=== PATIENT | female | born 1950 | race Caucasian/White ===

== ENCOUNTER 2017-08-02 21:46 | Inpatient (IN) | payer OTHER ==
--- OUTSIDE RECORDS SUMMARY | 2017-08-02 21:48 | XMS REPORT | Clinical Summary ---
:1950 Author Organization [facility] Address [address] [place] [address] Care Team Providers Name Role Phone Bidr Brooks MD Primary Care Provider Allergies Active Allergy Reactions Severity Noted Date Comments Aspirin 04/26/2017 Current Medications Prescription Sig. Disp. Refills Start Date End Date Status warfarin (COUMADIN) 5 Take 5 mg by Active MG tablet mouth daily. Take 1 tablet (5mg) by mouth daily for 30 days. gabapentin Take 300 mg by Active (NEURONTIN) 100 mg mouth every capsule morning. Take 3 capsules for 300 mg in morning gabapentin Take 200 mg by Active (NEURONTIN) 100 mg mouth 2 (two) capsule times a day. Take 2 capsules for 200 mg at Noon and Bedtime midodrine Take 5 mg by Active (PROAMATINE) 5 MG mouth every tablet morning. BUMETanide (BUMEX) 2 Take 2 mg by Active MG tablet mouth every morning. sevelamer (RENVELA) Take 800 mg by Active 800 mg tablet mouth 3 (three) times a day with meals. traMADol (ULTRAM) 50 Take 50 mg by Active mg tablet mouth every 6 (six) hours as needed for moderate pain. temazepam (RESTORIL) Take 15 mg by Active 15 mg capsule mouth nightly as needed for sleep. furosemide (LASIX) 40 Take 40 mg by Active mg tablet mouth every morning. gabapentin Take 1 capsule 30 capsule 0 05/09/2017 06/08/2017 (NEURONTIN) 300 mg (300 mg total) capsule by mouth daily for 30 days. Lactobacillus Take 1 tablet 60 tablet 0 05/08/2017 06/07/2017 acidoph-L.bulgar by mouth 2 (FLORANEX) 1 million (two) times a cell tablet day for 30 days. HEPARIN Inject 1 mL 10 mL 0 05/08/2017 05/13/2017 SODIUM,PORCINE (5,000 Units (HEPARIN, PORCINE,) total) under 5,000 unit/mL the skin every injection 12 (twelve) hours for 5 days. traMADol (ULTRAM) 50 Take 1 tablet 21 tablet 0 05/08/2017 05/15/2017 mg tablet (50 mg total) by mouth every 8 (eight) hours as needed for moderate pain for up to 7 days. 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 Encounters Date Type Specialty Care Team Description 05/03/2017 Anesthesia Event General Internal Clifford Melendez MD 05/03/2017 Procedure Pass General Surgery 05/03/2017 Surgery General Surgery Harvey Anderson, RIGHT FOOT 3RD DPM DIGIT AMPUTATION 04/27/2017 Procedure Pass General Internal Medicine 04/27/2017 Procedure Pass General Internal Medicine 04/26/2017 - Hospital Encounter General Internal Gudelia Mckeon Diabetic wet gangrene of the foot (Primary Dx); 05/08/2017 Medicine FITZ Muhammad Cellulitis of foot Vinod Nava DO Al-Lahiq, Maha, MD Teqwimuah, Remy, DO after 08/01/2016 Social History Tobacco Use Types Packs/Day Years Used Date Former Smoker Smokeless Tobacco: Never Used Alcohol Use Drinks/Week oz/Week Comments No Sex Assigned at Date Recorded Not on file Last Filed Vital Signs Vital Sign Reading Time Taken Blood Pressure 117/59 05/08/2017 10:44 AM STUCCO WORKER Pulse 73 05/08/2017 10:44 AM [employer]UCCO WORKER Temperature 35.8 C (96.5 F) 05/08/2017 10:44 AM STUCCO WORKER Respiratory Rate 16 05/08/2017 10:44 AM STUCCO WORKER Oxygen Saturation 97% 05/08/2017 10:44 AM STUCCO WORKER Inhaled Oxygen Concentration - - Weight 98.9 kg (218 lb) 05/05/2017 4:37 AM STUCCO WORKER Height 172.7 cm (5' 8") 04/27/2017 1:55 AM STUCCO WORKER Body Mass Index 33.15 05/05/2017 4:37 AM STUCCO WORKER Plan of Treatment Health Maintenance Due Date Last Done Comments FOOT EXAM 1959 OPHTHALMOLOGY EXAM 1959 URINE MICROALBUMIN 1959 COLONOSCOPY 1999 MAMMOGRAM 1999 ZOSTER VACCINE 2009 PNEUMOCOCCAL POLYSACCHARIDE VACCINE AGE 65 AND OVER 2014 PNEUMOCOCCAL-13 2014 INFLUENZA VACCINE 12/07/2016 Procedures Procedure Name Priority Date/Time Associated Diagnosis Comments HEMODIALYSIS Routine 05/07/2017 6:23 AM STUCCO WORKER HEMODIALYSIS Routine 05/05/2017 8:43 AM STUCCO WORKER RIGHT FOOT 3RD DIGIT 05/03/2017 5:00 PM DIABETIC WET GANGRENE AMPUTATION STUCCO WORKER OF THE RIGHT FOOT HEMODIALYSIS Routine 05/03/2017 7:18 AM STUCCO WORKER ULTRAFILTRATION Routine 04/30/2017 9:25 AM STUCCO WORKER after 08/01/2016 Results POC glucose (05/08/2017 11:51 AM)Only the most recent of46 resultswithin the time period is included. Component Value Ref Range POC glucose 247 (H) 65 - 99 mg/dL Comment: Meter ID: [id number] Spinning Machine Operator: Kanika Galeas Specimen Performing Laboratory [facility] DEPARTMENT OF PATHOLOGY AND GENOMIC MEDICINE [address] [place] [address] [place] [address] Estimated GFR (05/08/2017 5:00 AM)Only the most recent of7 resultswithin the time period is included. Component Value Ref Range GFR Non Af Amer 5 (A) mL/min/1.73 m2 GFR Af Amer 6 (A) mL/min/1.73 m2 Comment: Chronic kidney disease: <60 mL/min/1.73m2 Kidney failure: <15 mL/min/1.73m2 The estimated GFR is calculated from the IDMS-traceable Modification of Diet in Renal Disease Equation. The accuracy of the calculation is poor when the creatinine is normal. Calculated values >90 mL/min/1.73m2 are not reported. This equation has not been validated in children (<18 years), women, the elderly (>70 years), or ethnic groups other than Caucasians and Americans. Specimen Performing Laboratory Plasma specimen [facility] DEPARTMENT OF PATHOLOGY AND GENOMIC MEDICINE [id number] [place] [address] [place] [address] Prothrombin time with INR (05/08/2017 5:00 AM)Only the most recent of10 resultswithin the time period is included. Component Value Ref Range Prothrombin time 13.8 12.0 - 15.0 sec INR 1.0 Comment: The International Normalized Ratio (INR) is a therapeutic monitoring tool for patients who are stable on oral anticoagulant therapy. An INR of 2.0-3.0 is suggested for deep vein thrombosis/pulmonary embolism. Specimen Performing Laboratory Blood [facility] OF PATHOLOGY AND [facility] [address] [place] [address] CBC with platelet and differential (05/08/2017 5:00 AM)Only the most recent of6 resultswithin the time period is included. Component Value Ref Range WBC 7.45 4.50 - 11.00 k/uL RBC 4.01 (L) 4.20 - 5.50 m/uL HGB 11.5 (L) 12.0 - 16.0 g/dL HCT 36.3 (L) 37.0 - 47.0 % MCV 90.5 82.0 - 100.0 fL MCH 28.7 27.0 - 34.0 pg MCHC 31.7 31.0 - 37.0 g/dL RDW - SD 46.8 37.0 - 55.0 fL MPV 9.6 8.8 - 13.2 fL Platelet count 313 150 - 400 k/uL Nucleated RBC 0.00 /100 WBC Neutrophils 61.6 39.0 - 69.0 % Lymphocytes 23.0 (L) 25.0 - 45.0 % Monocytes 11.8 (H) 0.0 - 10.0 % Eosinophils 2.8 0.0 - 5.0 % Basophils 0.5 0.0 - 1.0 % Immature granulocytes 0.3Comment: "Immature granulocytes" 0.0 - 1.0 % (promyelocytes, myelocytes, metamyelocytes) Specimen Performing Laboratory Blood [facility] DEPARTMENT OF PATHOLOGY AND [facility] [address] [place] [address] Basic metabolic panel (05/08/2017 5:00 AM)Only the most recent of6 resultswithin the time period is included. Component Value Ref Range Sodium 128 (L) 135 - 148 mEq/L Potassium 4.4 3.5 - 5.0 mEq/L Chloride 85 (L) 98 - 112 mEq/L CO2 24 24 - 31 mEq/L Anion gap 19 (H) 7 - 15 mEq/L Comment: Starting from August , anion gap calculation no longer incorporates potassium. Please note the change. BUN 61 (H) 8 - 23 mg/dL Creatinine 7.8 (H) 0.5 - 0.9 mg/dL Glucose 154 (H) 65 - 99 mg/dL Calcium 9.4 8.8 - 10.2 mg/dL Specimen Performing Laboratory Plasma specimen [facility] DEPARTMENT OF PATHOLOGY AND GENOMIC [facility] [id number] [place] [address] [place] [address] IR Revasc Tib Per Initial Vessel W Tla Left (05/06/2017 12:45 PM) Specimen Performing Laboratory [address] [address] Narrative PROCEDURE:IR REVASC TIB PER INITIAL VESSEL W TLA LEFT This exam was performed in the Radiology department. IMPRESSION: A complete separate report will be issued in operative notes by the performing physician. [id number] Procedure Note Interface, Radiology Results Incoming - 05/06/2017 2:39 PM STUCCO WORKER PROCEDURE: IR REVASC TIB PER INITIAL VESSEL W TLA LEFT This exam was performed in the Radiology department. IMPRESSION: A complete separate report will be issued in operative notes by the performing physician. [id number] IR Left Extremity Angiogram (05/06/2017 12:45 PM) Specimen [place]forming [place] [address] Narrative PROCEDURE:IR LEFT EXTREMITY ANGIOGRAM This exam was performed in the Radiology department. Fluoro time:25:27 minutes IMPRESSION: A complete separate report will be issued in operative notes by the performing physician. [id number] Procedure Note Interface, Radiology Results Incoming - 05/06/2017 2:39 PM STUCCO WORKER PROCEDURE: IR LEFT EXTREMITY ANGIOGRAM This exam was performed in the Radiology department. Fluoro time: 25:27 minutes IMPRESSION: A complete separate report will be issued in operative notes by the performing physician. [id number] Vancomycin level, random (05/06/2017 5:00 AM)Only the most recent of2 resultswithin the time period is included. Component Value Ref Range Vancomycin, random 18.0 ug/mL Specimen Performing Laboratory Serum [facility] DEPARTMENT OF PATHOLOGY AND GENOMIC MEDICINE [address] [place] [address] Partial thromboplastin time, activated (05/05/2017 4:30 AM)Only the most recent of2 resultswithin the time period is included. Component Value Ref Range PTT 42.1 (H) 23.0 - 36.0 sec Comment: PTT therapeutic range for unfractionated heparin is 61.0-112.0 seconds which corresponds to Anti-Xa 0.3-0.7 U/ml. Specimen Performing Laboratory Blood [facility] DEPARTMENT PATHOLOGY AND [facility] [address] [place] [address] Type and screen (05/05/2017 4:25 AM)Only the most recent of2 resultswithin the time period is included. Component Value Ref Range ABO grouping O Rh type POS Antibody screen NEG Specimen Performing Laboratory Blood [facility] [address] [place] [address] Surgical pathology request (05/03/2017 6:38 PM) Component Value Ref Range Surgical pathology report See link below for PDF Lab Report Result status This is Final Report to [id number] Specimen Performing Laboratory [facility] [address] [place] [address] CBC hemogram (05/03/2017 5:03 PM) Component Value Ref Range WBC 9.14 4.50 - 11.00 k/uL RBC 4.34 4.20 - 5.50 m/uL HGB 12.5 12.0 - 16.0 g/dL HCT 40.2 37.0 - 47.0 % MCV 92.6 82.0 - 100.0 fL MCH 28.8 27.0 - 34.0 pg MCHC 31.1 31.0 - 37.0 g/dL RDW - SD 49.1 37.0 - 55.0 fL MPV 9.3 8.8 - 13.2 fL Platelet count 334 150 - 400 k/uL Nucleated RBC 0.00 /100 WBC Specimen Performing Laboratory Blood [facility] [id number] [place] [address] [place] [address] Aerobic culture (05/03/2017 4:45 PM)Only the most recent of2 resultswithin the time period is included. Component Value Ref Range Aerobic culture isolate Staphylococcus aureus Few , susceptibility to follow This organism is Methicillin Sensitive. (A) Comment: Specimen Information Specimen Source: Wound Specimen Site: [id number] Aerobic culture isolate Staphylococcus, coagulase negative Few (A) Specimen Performing Laboratory Wound [facility] DEPARTMENT OF PATHOLOGY AND GENOMIC MEDICINE [address] [place] [id number] Organism Antibiotic Method Susceptibility Staphylococcus aureus Ampicillin RITESH mcg/mL: Resistant Staphylococcus aureus Clindamycin RITESH <=0.5 mcg/mL: Susceptible Staphylococcus aureus Erythromycin RITESH >4 mcg/mL: Resistant Staphylococcus aureus Levofloxacin RITESH <=1 mcg/mL: Susceptible Staphylococcus aureus Linezolid RITESH 2 mcg/mL: Susceptible Staphylococcus aureus Minocycline RITESH <=1 mcg/mL: Susceptible Staphylococcus aureus Oxacillin RITESH 1 mcg/mL: Susceptible Staphylococcus aureus Penicillin G RITESH >1 mcg/mL: Resistant Staphylococcus aureus Rifampin RITESH <=0.5 mcg/mL: Susceptible Staphylococcus aureus Trimethoprim/Sulfamethoxazo RITESH <=0.5/9.5 mcg/mL: le Susceptible Staphylococcus aureus Tetracycline RITESH <=0.5 mcg/mL: Susceptible Staphylococcus aureus Vancomycin RITESH 2 mcg/mL: Susceptible Gram stain (05/03/2017 4:45 PM)Only the most recent of2 resultswithin the time period is included. Component Value Ref Range Gram stain isolate No WBC's or organisms seen. Comment: Specimen Information Specimen Source: Wound Specimen Site: [id number] Specimen Performing Laboratory Wound [facility] DEPARTMENT OF PATHOLOGY AND [facility] [address] [place] [id number] Anaerobic culture (05/03/2017 4:45 PM)Only the most recent of2 resultswithin the time period is included. Component Value Ref Range Anaerobic culture isolate No anaerobic organisms isolated. Comment: Specimen Information Specimen Source: Wound Specimen Site: [id number] Specimen Performing Laboratory Wound [facility] DEPARTMENT OF PATHOLOGY AND [facility] [address] [place] [address] C difficile toxin (05/02/2017 2:30 PM) Component Value Ref Range Clostridium difficile toxin No Clostridium difficle toxin present Comment: Specimen Information Specimen Source: Stool Specimen Site: Nonpreserved Specimen Performing Laboratory Stool - Nonpreserved [facility] DEPARTMENT OF PATHOLOGY AND [facility] [address] [place] [address] MRI Foot Wo Contrast Right (04/30/2017 6:57 PM) Specimen Performing Laboratory [address] [address] Narrative EXAMINATION:MRI FOOT WO CONTRAST RIGHT CLINICAL HISTORY:OSTEOMYELITISFOOT COMPARISON:Radiograph performed on 04/26/2017. TECHNIQUE: Multiplanar multisequence MRI of the right foot was performed without contrast. FINDINGS: There is soft tissue ulceration at the distal aspect of the third toe with adjacent soft tissue edema. No organized soft tissue fluid collection is identified. There is bone marrow edema involving all 3 phalanges of the third toe, compatible with osteomyelitis. No other focal marrow edema is identified. There is no acute traumatic or stress related fracture. There are scattered degenerative changes. The Lisfranc ligament is intact and the Lisfranc joint is congruent on these nonweightbearing images. The plantar plates are intact. There is fatty atrophy of the right foot musculature, likely secondary to peripheral neuropathy given the history of diabetes. IMPRESSION: 1.Soft tissue ulceration of the third toe with osteomyelitis of all 3 of the third toe phalanges. 2.No soft tissue abscess. [id number] Procedure Note [facility], Radiology Results Incoming - 04/30/2017 7:13 PM STUCCO WORKER EXAMINATION: MRI FOOT WO CONTRAST RIGHT CLINICAL HISTORY: OSTEOMYELITIS FOOT COMPARISON: Radiograph performed on 04/26/2017. TECHNIQUE: Multiplanar multisequence MRI of the right foot was performed without contrast. FINDINGS: There is soft tissue ulceration at the distal aspect of the third toe with adjacent soft tissue edema. No organized soft tissue fluid collection is identified. There is bone marrow edema involving all 3 phalanges of the third toe, compatible with osteomyelitis. No other focal marrow edema is identified. There is no acute traumatic or stress related fracture. There are scattered degenerative changes. The Lisfranc ligament is intact and the Lisfranc joint is congruent on these nonweightbearing images. The plantar plates are intact. There is fatty atrophy of the right foot musculature, likely secondary to peripheral neuropathy given the history of diabetes. IMPRESSION: 1. Soft tissue ulceration of the third toe with osteomyelitis of all 3 of the third toe phalanges. 2. No soft tissue abscess. [id number] ECG 12 lead (04/30/2017 6:39 AM)Only the most recent of2 resultswithin the time period is included. Component Value Ref Range Ventricular rate 89 Atrial rate 220 QRSD interval 132 QT interval 396 QTC interval 481 QRS axis 1 179 T wave axis -4 EKG impression ^^^ Suspect arm lead reversal, interpretation assumes no reversal-Atrial fibrillation with premature ventricular or aberrantly conducted complexes-Nonspecific intraventricular block-Lateral infarct , age undetermined- Inferior infarct , age undetermined-Abnormal ECG-In automated comparison with ECG of 28-APR-2017 04: 36,-Atrial fibrillation has replaced Wide QRS rhythm- Specimen Performing Laboratory [facility] [address] [place] [address] MRI Foot Wo Contrast Left (04/29/2017 5:06 PM) Specimen Performing Laboratory [facility] [address] [place] [address] Narrative EXAMINATION:MRI FOOT WO CONTRAST LEFT CLINICAL HISTORY: COMPARISON:None. FINDINGS: Extensor tendons: Intact Flexor tendons: The peroneus longus and brevis tendons appear intact to the limits of visualization. The flexor hallucis longus tendon, flexor digitorum tendons appear intact. The posterior tibial tendon demonstrates some irregularity and tendinosis at its navicular insertion although no high-grade tear is identified. Achilles tendon: There is extensive degenerative signal change within the Achilles tendon and a partial tear which appears to be insertional of the Achilles tendon with vertical splitting of the tendon and changes of severe tendinosis and partial tearing with a grade 2 tear of the Achilles tendon at the level of the calcaneal insertion. Complete tear is not present. Tarsal sinus: Intact Lateral collateral ligament complex: The anterior and posterior talofibular ligaments appear intact. Some thickening of the anterior talofibular ligament suggests an old chronic tear andhealing with some scar. The calcaneofibular ligament appears mostly intact. Medial collateral ligament, deltoid ligament complex demonstrates diffusely abnormal signal in the deltoid ligament component. This is consistent with a chronic partial tear. The calcaneotibial fibers are attenuated consistent with a chronic partial tear moderate in degree. Osseous structures and cartilaginous surfaces: There is no marrow edema identified. There is no focal osteochondral lesion involving the talar dome although diffuse attenuation of articular cartilage is present. The adjacent portions of the fibular and tibial articular surfaces appear intact with arthritic changes and some spurring greatest medially. Miscellaneous findings: There is mild thickening of the plantar fascia at its insertion into calcaneus with some edema which may be seen in mild plantar fasciitis. IMPRESSION: 1. Tendinosis and degenerative signal change of the posterior tibial tendon at its navicular insertion with some spurring and osteophyte formation this area. 2. Partial tear of the Achilles tendon distally. This is an insertional tear grade 2 there are numerous intact fibers. Some vertical splitting is also present. There is no retraction of the partially torn tendon. 3. Partial chronic tear of the deltoid ligament and calcaneal tibial ligament [id number] Procedure Note Hm Interface, Radiology Results Incoming - 04/29/2017 6:04 PM STUCCO WORKER EXAMINATION: MRI FOOT WO CONTRAST LEFT CLINICAL HISTORY: COMPARISON: None. FINDINGS: Extensor tendons: Intact Flexor tendons: The peroneus longus and brevis tendons appear intact to the limits of visualization. The flexor hallucis longus tendon, flexor digitorum tendons appear intact. The posterior tibial tendon demonstrates some irregularity and tendinosis at its navicular insertion although no high-grade tear is identified. Achilles tendon: There is extensive degenerative signal change within the Achilles tendon and a partial tear which appears to be insertional of the Achilles tendon with vertical splitting of the tendon and changes of severe tendinosis and partial tearing with a grade 2 tear of the Achilles tendon at the level of the calcaneal insertion. Complete tear is not present. Tarsal sinus: Intact Lateral collateral ligament complex: The anterior and posterior talofibular ligaments appear intact. Some thickening of the anterior talofibular ligament suggests an old chronic tear and healing with some scar. The calcaneofibular ligament appears mostly intact. Medial collateral ligament, deltoid ligament complex demonstrates diffusely abnormal signal in the deltoid ligament component. This is consistent with a chronic partial tear. The calcaneotibial fibers are attenuated consistent with a chronic partial tear moderate in degree. Osseous structures and cartilaginous surfaces: There is no marrow edema identified. There is no focal osteochondral lesion involving the talar dome although diffuse attenuation of articular cartilage is present. The adjacent portions of the fibular and tibial articular surfaces appear intact with arthritic changes and some spurring greatest medially. Miscellaneous findings: There is mild thickening of the plantar fascia at its insertion into calcaneus with some edema which may be seen in mild plantar fasciitis. IMPRESSION: 1. Tendinosis and degenerative signal change of the posterior tibial tendon at its navicular insertion with some spurring and osteophyte formation this area. 2. Partial tear of the Achilles tendon distally. This is an insertional tear grade 2 there are numerous intact fibers. Some vertical splitting is also present. There is no retraction of the partially torn tendon. 3. Partial chronic tear of the deltoid ligament and calcaneal tibial ligament [id number] Vancomycin level, trough (04/29/2017 4:45 AM) Component Value Ref Range Vancomycin, trough 26.0 (HH) 10.0 - 20.0 ug/mL Comment: Therapeutic Ranges: Peak 30.0 - 40.0 ug/mL Xrwjue79.0 - 20.0 ug/mL Results called to and read back by VERNON KHOURY ON [address] MAIN at 06:15 04/29/2017 by [id number]. Specimen Performing Laboratory Serum [facility] DEPARTMENT OF PATHOLOGY AND GENOMIC MEDICINE [address] [place] [address] IR Bilateral Lower Extremity Arteriogram (04/28/2017 4:24 PM) Specimen [place] [address] Narrative PROCEDURE:IR BILATERAL LOWER EXTREMITY ARTERIOGRAM This exam was performed in the Radiology department. Fluoro time:12:58 minutes IMPRESSION: A complete separate report will be issued in operative notes by the performing physician. [id number] Procedure Note Interface, Radiology Results Incoming - 04/28/2017 4:48 PM STUCCO WORKER PROCEDURE: IR BILATERAL LOWER EXTREMITY ARTERIOGRAM This exam was performed in the Radiology department. Fluoro time: 12:58 minutes IMPRESSION: A complete separate report will be issued in operative notes by the performing physician. [id number] IR Revasc Tib Per Initial Vessel W Tla Right (04/28/2017 4:24 PM) Specimen Performing Laboratory [address] [address] Narrative PROCEDURE:IR REVASC TIB PER INITIAL VESSEL W TLA RIGHT This exam was performed in the Radiology department. Fluoro time:12:58 minutes IMPRESSION: A complete separate report will be issued in operative notes by the performing physician. [id number] Procedure Note Interface, Radiology Results Incoming - 04/28/2017 4:48 PM STUCCO WORKER PROCEDURE: IR REVASC TIB PER INITIAL VESSEL W TLA RIGHT This exam was performed in the Radiology department. Fluoro time: 12:58 minutes IMPRESSION: A complete separate report will be issued in operative notes by the performing physician. [id number] IR Aortogram Abdominal (04/28/2017 4:24 PM) Specimen Performing Laboratory [address] [address] Narrative PROCEDURE:IR ABDOMINAL AORTOGRAM This exam was performed in the Radiology department. Fluoro time:12:58 minutes IMPRESSION: A complete separate report will be issued in operative notes by the performing physician. [id number] [facility], Radiology Results Incoming - 04/28/2017 4:48 PM STUCCO WORKER PROCEDURE: IR ABDOMINAL AORTOGRAM This exam was performed in the Radiology department. Fluoro time: 12:58 minutes IMPRESSION: A complete separate report will be issued in operative notes by the performing physician. [id number] Hepatitis B surface antigen (04/27/2017 3:30 PM) Component Value Ref Range Hepatitis B surface Ag Nonreactive Non-reactive Specimen Performing Laboratory Blood [facility] DEPARTMENT OF PATHOLOGY AND GENOMIC MEDICINE [id number] [place] [address] [place] [address] Hemoglobin A1c (04/27/2017 9:18 AM) Component Value Ref Range Hemoglobin A1C 6.8 (H) 4.0 - 6.0 % Comment: Less than 6% - Goal of therapy for Type II Diabetes Less than 7%-Goal of therapy for Type I Diabetes Less than 8%-Acceptable control for Type I or Type II Diabetes Greater than 8%-Unacceptable control; action indicated. ([id number]) Specimen Performing Laboratory Blood [facility] DEPARTMENT OF PATHOLOGY AND [facility] [id number] [place] [address] [place] [address] Lactic acid level (04/26/2017 9:35 PM)Only the most recent of2 resultswithin the time period is included. Component Value Ref Range Lactic acid 1.3 0.5 - 2.2 mmol/L Specimen Performing Laboratory Plasma specimen [facility] DEPARTMENT PATHOLOGY AND [facility] [id number] [place] [address] [place] [address] Bedside glucose (04/26/2017 7:20 PM) Component Value Ref Range POC glucose 219 Specimen Performing Laboratory Blood Blood culture, aerobic & anaerobic (04/26/2017 7:09 PM)Only the most recent of2 resultswithin the time period is included. Component Value Ref Range Blood culture isolate No growth after 5 days of incubation. Comment: Specimen Information Specimen Source: Blood Specimen Site: Antecubital, right Specimen Performing Laboratory Blood - Antecubital, right [facility] DEPARTMENT OF PATHOLOGY AND GENOMIC MEDICINE [address] [place] [id number] Sedimentation rate (04/26/2017 7:09 PM) Component Value Ref Range Sedimentation rate 50 (H) 0 - 20 mm/hr Specimen Performing Laboratory Blood [facility] DEPARTMENT PATHOLOGY AND [facility] [id number] [place] [address] [place] [address] C-reactive protein (04/26/2017 7:09 PM) Component Value Ref Range CRP 12.92 (H) 0.00 - 0.50 mg/dL Specimen Performing Laboratory Plasma specimen [facility] DEPARTMENT OF PATHOLOGY AND [facility] [address] [place] [id number] Comprehensive metabolic panel (04/26/2017 7:09 PM) Component Value Ref Range Sodium 130 (L) 135 - 148 mEq/L Potassium 4.9 3.5 - 5.0 mEq/L Chloride 89 (L) 98 - 112 mEq/L CO2 24 24 - 31 mEq/L Anion gap 17 (H) 7 - 15 mEq/L Comment: Starting from August , anion gap calculation no longer incorporates potassium. Please note the change. BUN 55 (H) 8 - 23 mg/dL Creatinine 6.2 (H) 0.5 - 0.9 mg/dL Glucose 253 (H) 65 - 99 mg/dL Calcium 9.1 8.8 - 10.2 mg/dL Protein 9.3 (H) 6.3 - 8.3 g/dL Comment: 4.6-7.0 g/dL 1 week 4.4-7.6 g/dL 7 months-1year5.1-7.3 g/dL 1-2 years5.6-7.5 g/dL >3 years6.0-8.0 g/dL 18-150 6.3-8.3 g/dL Albumin 3.6 3.5 - 5.0 g/dL A/G ratio 0.6 (L) 0.7 - 3.8 Alkaline phosphatase 155 (H) 35 - 104 U/L AST 9 (L) 10 - 35 U/L ALT 9 5 - 50 U/L Total bilirubin 0.4 0.0 - 1.2 mg/dL Specimen Performing Laboratory Plasma specimen [facility] DEPARTMENT PATHOLOGY AND [facility] [id number] [place] [address] [place] [address] XR Foot 3+ Vw Right (04/26/2017 6:14 PM) Specimen Performing Laboratory [address] [place] [address] Narrative EXAMINATION:XR FOOT 3VW RIGHT CLINICAL HISTORY:open wound COMPARISON:None. IMPRESSION: There is deformity of the fourth and fifth metatarsal heads, possibly related to old trauma. Marked arthritic changes are noted involving the first interphalangeal joint. Extensive vascular calcifications are present. There is severe flattening of the plantar arch. There is no evidence of osteomyelitis. [facility]-[id number] Procedure Note Interface, Radiology Results Incoming - 04/26/2017 6:18 PM [employer] WORKER EXAMINATION: XR FOOT 3 VW RIGHT CLINICAL HISTORY: open wound COMPARISON: None. IMPRESSION: There is deformity of the fourth and fifth metatarsal heads, possibly related to old trauma. Marked arthritic changes are noted involving the first interphalangeal joint. Extensive vascular calcifications are present. There is severe flattening of the plantar arch. There is no evidence of osteomyelitis. [facility]-[id number] after 08/01/2016 Insurance Payer Benefit Plan / Group Subscriber ID Type Phone Address MEDICARE MEDICARE PART A AND B xxxxxxxxxx Medicare [place], [place] UHC UNITEDHEALTHCARE CHOICE/CHOICE + xxxxxxxxx HMO/PPO Home: [facility] FAREED [phone] [place], [place] [phone]
[2017-08-02] MEDS ORDERED: NA CHLORIDE 0.9% 100 ML IV ONE ×2 (22:19→22:26)
[2017-08-02] MEDS ORDERED: dilTIAZem HCl 50 MG/10 ML VIAL IV ONE ×2 (22:20→22:22)
[2017-08-02] MEDS ORDERED: LEVALBUTEROL 0.63 MG/3 ML NEB ONE (22:26)
[2017-08-02 22:54] LABS: Absolute Lymphocytes (CBC) 0.8 K/uL (0.7-4.9); Absolute Monocytes 1.5 K/uL (0.1-1.3); Absolute Neutrophil 7.7 K/uL (1.8-8.0); Basophils % 0.6 % (0-1.3); Eosinophils % 0.9 % (0-4.4); Hematocrit 36.2 % (36.0-45.0); Lymphocytes % 8.2 % (15.3-44.8); MCH 27.3 pg (27.0-35.0); MCV 89.2 fL (80-100); MPV 8.7 fL (7.6-11.3); Monocytes % 14.9 % (3.3-12.3); RBC Red Blood Cell Count 4.06 M/uL (3.86-4.86)
[2017-08-02 22:57] LABS: Protime INR 2.49
[2017-08-02 22:58] LABS: Potassium 4.6 mEq/L (3.6-5.0)
[2017-08-02 23:05] LABS: Bilirubin Direct 0.3 mg/dL (0-0.2); Bilirubin Total 0.8 mg/dL (0.3-1.2); Magnesium 2.1 mg/dL (1.8-2.5); Protein, Total 8.5 g/dL (6.0-8.3)
[2017-08-02 23:08] LABS: CKMB Creatine Kinase MB 2.2 ng/ml (0.3-4.0)
--- NOTE | 2017-08-02 23:10 | ER ---
Nurse's Notes [facility] Name: Laura Vazquez Age: 67 yrs Sex: Female : 1950 Arrival Date: 08/02/2017 Time: 21:48 Bed 27 Private MD: Diagnosis: Atrial fibrillation and flutter Presentation: 08/02 22:04 Presenting complaint: EMS states: Called by [facility] staff for increased HR and low kb1 02 saturation. Upon EMS arrival Pt was pale/diaphoretic and in A-Fib with RVR rate of 160-170. Transition of care: patient was received from another setting of care (long-term care facility), [facility]. Onset of symptoms was August 02, 2017. Care prior to arrival: Medication(s) given: Cardizem 10mg IVP IV initiated. 22 GA, in the right hand. 22:04 Method Of Arrival: EMS: [facility] kb1 22:04 Acuity: MG 1 ea Triage Assessment: 22:09 General: Appears distressed, Behavior is cooperative, restless. Pain: Denies pain. kb1 Neuro: Level of Consciousness is awake, Oriented to person. Cardiovascular: Capillary refill is > 3 seconds Rhythm is atrial fibrillation with rapid ventricular response. Respiratory: Airway is patent Respiratory effort is labored, Breath sounds with wheezes bilaterally. wheezes audible without auscultation. GI: No signs and/or symptoms were reported involving the gastrointestinal system. : No signs and/or symptoms were reported regarding the genitourinary system. Historical: - Allergies: 22:09 Aspirin; kb1 - Home Meds: 08/03 00:20 midodrine 10 mg oral tab 1 tab [Active]; warfarin 2 mg oral tab 1 tab once daily kb1 [Active]; temazepam 15 mg Oral cap 1 cap once daily [Active]; gabapentin 300 mg Oral cap 1 cap 3 times per day [Active]; tramadol 50 mg Oral tab 1 tab every 6 hours [Active]; sevelamer carbonate 800 mg oral tab 3 tab before meals [Active]; - PMHx: 00:20 CVA; Diabetes - IDDM; Dialysis; Hypertension; kb1 00:22 COPD; Atrial Fib; kb1 - Immunization history:: Pneumococcal vaccine is up to date, Flu vaccine is up to date. - Social history:: Smoking status: Patient/guardian denies using tobacco, the patient reports quitting approximately 22 years ago. Screenin/27 23:29 Abuse screen: unable to answer questions appropriately. Nutritional screening: No kb1 deficits noted. Tuberculosis screening: No symptoms or risk factors identified. Fall Risk IV access (20 points). Assessment: 22:15 Reassessment: reports Pt is usually AAOx3, today at his visit Pt had a "bad kb1 cough, but she was okay". 23:21 Reassessment: at bedside. General: Appears uncomfortable, Behavior is kb1 cooperative. Pain: Denies pain. Neuro: Level of Consciousness is awake, obeys commands, Oriented to person, place, time. Cardiovascular: Rhythm is atrial fibrillation with rapid ventricular response. Respiratory: Reports cough that is Airway is patent Respiratory effort is unlabored, Respiratory pattern is regular, Breath sounds with wheezes bilaterally. 23:40 Reassessment: Repositioned in bed for comfort. kb1 08/03 00:28 Reassessment: Patient appears in no apparent distress at this time. Patient and/or kb1 family updated on plan of care and expected duration. Pain level reassessed. Patient is alert, oriented x 3, equal unlabored respirations, skin warm/dry/pink. Vital Signs: 08/02 22:00 BP 121 / 84; Pulse 131; Resp 18; Pulse Ox 89% ; kb1 22:15 BP 132 / 75; Pulse 119; Resp 24; Pulse Ox 94% ; kb1 22:30 BP 132 / 75; Pulse 135; Resp 19; Temp 98.6(T); Pulse Ox 97% on Nebulizer Mask; mt 22:54 BP 119 / 64; Pulse 120; Resp 24; Pulse Ox 94% ; kb1 23:16 BP 118 / 98; Pulse 133; Resp 17; Pulse Ox 95% on 3 lpm NC; mt 23:40 BP 109 / 72; Pulse 109; Resp 20; Pulse Ox 96% 3 lpm ; kb1 23:47 BP 99 / 53; Pulse 110; Resp 20; Pulse Ox 100% 3 lpm ; kb1 08/03 00:27 BP 92 / 61; Pulse 105; Resp 20; Pulse Ox 97% 3 lpm ; kb1 ED Course: 08/02 21:48 Patient arrived in ED. am2 21:56 Fidel Lieberman MD is Attending Physician. kdr 22:04 Patient has correct armband on for positive identification. Placed in gown. Bed in low kb1 position. Call light in reach. Side rails up X2. gum worker on. Pulse ox on. NIBP on. 22:04 Maintain EMS IV. Dressing intact. Good blood return noted. Site clean \\T\\ dry. Gauge \\T\\ kb 1 site: 22g R hand. 22:08 Triage completed. kb1 22:09 Arm band placed on. kb1 22:10 Inserted saline lock: 22 gauge in right hand, using aseptic technique. Blood collected. kb1 22:12 X-ray completed. Portable x-ray completed in exam room. Patient tolerated procedure kc2 well. 22:12 XRAY Chest (1 view) In Process Unspecified. EDMS 23:04 Stacie Al, MOISE is Primary Nurse. kb1 23:10 Jasbir Nevarez MD is Hospitalizing Provider. kdr 08/03 01:21 Patient admitted, IV remains in place. kb1 01:21 No provider procedures requiring assistance completed. kb1 Administered Medications: 08/02 22:10 Drug: Xopenex (3) 1.25 mg Route: Inhalation; bb 23:33 Follow up: Response: No adverse reaction kb1 22:15 Drug: Cardizem 10 mg Route: IVP; Site: right hand; bb 23:41 Follow up: Response: No adverse reaction kb1 22:17 Drug: Cardizem 5 mg/hr Route: IV; Rate: calculated rate; Site: right hand; bb 22:32 Follow up: Rate change 10 mg/hr kb1 22:50 Follow up: Rate change 15 mg/hr kb1 23:48 Follow up: Rate change 10 mg/hr kb1 08/03 01:22 Follow up: IV Status: Infusion continued upon admission kb1 Outcome: 08/02 23:10 Decision to Hospitalize by Provider. kdr 08/03 01:20 Admitted to ICU accompanied by nurse, accompanied by tech, family with patient, via kb1 stretcher, room 7, with oxygen, on monitor, Report called to bedside reports given to CLINICAL APPLICATIONS MANAGER Condition: stable Instructed on the need for admit. 01:23 Patient left the ED. kb1 Signatures: Dispatcher [employer] EDMS Fidel Lieberman MD MD kdr Jaclyn Jiménez RN RN Chari Duong 2 Janette Lovelace am2 Jacey Andrea mt, Elena RN RN ea Stacie Al RN RN kb1 Corrections: (The following items were deleted from the chart) 08/02 22:55 22:20 Rate change 10 mg/hr kb1 kb1 08/03 00:35 08/02 22:04 Acuity: MG 2 kb1 ea
--- NOTE | 2017-08-02 23:10 | EDPHYS ---
Physician Documentation [facility] Name: Laura Vazquez Age: 67 yrs Sex: Female : 1950 Arrival Date: 08/02/2017 Time: 21:48 Bed 27 Private MD: ED Physician Fidel Lieberman HPI: 08/03 01:23 This 67 yrs old Female presents to ER via EMS with complaints of high heart kdr rate and confusion. 01:23 The patient presents with a history of irregular heart beat, heart racing. Context: The kdr symptoms occur at rest. Onset: The symptoms/episode began/occurred at an unknown time. Duration: The patient or guardian reports a single episode, that is still ongoing, and worsening. Modifying factors: The symptoms are aggravated by nothing. The symptoms are alleviated by prescription medication, EMS had given 10 mg of Cardizem. Associated signs and symptoms: Pertinent positives: cough, SOB, Pertinent negatives:. Severity of symptoms: At their worst the symptoms were moderate severe incapacitating just prior to arrival, in the emergency department the symptoms have improved mildly. The patient has experienced similar episodes in the past. The patient has been recently been admitted at [facility], was discharged last month. Historical: - Allergies: 08/02 22:09 Aspirin; kb1 - Home Meds: 08/03 00:20 midodrine 10 mg oral tab 1 tab [Active]; warfarin 2 mg oral tab 1 tab once daily kb1 [Active]; temazepam 15 mg Oral cap 1 cap once daily [Active]; gabapentin 300 mg Oral cap 1 cap 3 times per day [Active]; tramadol 50 mg Oral tab 1 tab every 6 hours [Active]; sevelamer carbonate 800 mg oral tab 3 tab before meals [Active]; - PMHx: 00:20 CVA; Diabetes - IDDM; Dialysis; Hypertension; kb1 00:22 COPD; Atrial Fib; kb1 - Immunization history:: Pneumococcal vaccine is up to date, Flu vaccine is up to date. - Social history:: Smoking status: Patient/guardian denies using tobacco, the patient reports quitting approximately 22 years ago. ROS: 01:23 Constitutional: The patient is a poor historian kdr 01:23 Unable to obtain ROS due to altered mental status, patient distress. Exam: 01:23 Constitutional: This is a well developed, well nourished patient who is awake, poorly kdr alert, and in moderate distress. Head/Face: Normocephalic, atraumatic. Eyes: Pupils equal round and reactive to light, extra-ocular motions intact. Lids and lashes normal. Conjunctiva and sclera are non-icteric and not injected. Cornea within normal limits. Periorbital areas with no swelling, redness, or edema. Neck: Trachea midline, no thyromegaly or masses palpated, and no cervical lymphadenopathy. Supple, full range of motion without nuchal rigidity, or vertebral point tenderness. No Meningismus. Chest/axilla: Normal chest wall appearance and motion. Nontender with no deformity. No lesions are appreciated. Abdomen/GI: Soft, non-tender, with normal bowel sounds. Obese buty no distension or tympany. No guarding or rebound. No evidence of tenderness throughout. 01:23 Cardiovascular: Rate: tachycardic, Rhythm: irregularly irregular, Pulses: no pulse deficits are appreciated, Heart sounds: normal, Edema: 1+ edema to level of left ankle, right midcalf and right ankle. Vital Signs: 08/02 22:00 BP 121 / 84; Pulse 131; Resp 18; Pulse Ox 89% ; kb1 22:15 BP 132 / 75; Pulse 119; Resp 24; Pulse Ox 94% ; kb1 22:30 BP 132 / 75; Pulse 135; Resp 19; Temp 98.6(T); Pulse Ox 97% on Nebulizer Mask; mt 22:54 BP 119 / 64; Pulse 120; Resp 24; Pulse Ox 94% ; kb1 23:16 BP 118 / 98; Pulse 133; Resp 17; Pulse Ox 95% on 3 lpm NC; mt 23:40 BP 109 / 72; Pulse 109; Resp 20; Pulse Ox 96% 3 lpm ; kb1 23:47 BP 99 / 53; Pulse 110; Resp 20; Pulse Ox 100% 3 lpm ; kb1 08/03 00:27 BP 92 / 61; Pulse 105; Resp 20; Pulse Ox 97% 3 lpm ; kb1 MDM: 08/02 23:10 Patient medically screened. kdr 08/03 01:23 Data reviewed: vital signs, nurses notes, lab test result(s), EKG, radiologic studies. kdr Counseling: I had a detailed discussion with the patient and/or guardian regarding: the historical points, exam findings, and any diagnostic results supporting the discharge/admit diagnosis, lab results, radiology results, the need for further work-up and treatment in the hospital. Physician consultation: Jasbir Nevarez MD. 08/02 22:04 Order name: Basic Metabolic Panel [facility] 08/02 22:04 Order name: BNP; Complete Time: 01:50 [facility] 08/02 22:04 Order name: CBC with Diff; Complete Time: :50 [facility] 08/02 22:04 Order name: Ckmb; Complete Time: :50 [facility] 08/02 22:04 Order name: CPK; Complete Time: :50 [facility] 08/02 22:04 Order name: LFT's; Complete Time: :50 [facility] 08/02 22:04 Order name: Magnesium; Complete Time: : [facility] 08/02 22:04 Order name: PT-INR; Complete Time: 01: [facility] 08/02 22:04 Order name: Ptt, Activated; Complete Time: :50 [facility] 08/02 22:04 Order name: Troponin (emerg Dept Use Only); Complete Time: :50 [facility] 08/02 22:04 Order name: XRAY Chest (1 view) [facility] 08/02 22:05 Order name: Basic Metabolic Panel; Complete Time: 01:50 [facility] 08/02 22:25 Order name: Blood Culture Adult (2) [facility] 08/02 23:15 Order name: CBC Smear Scan; Complete Time: 01:50 [facility] 08/02 22:04 Order name: EKG; Complete Time: 22:05 [facility] 08/02 22:04 Order name: Cardiac monitoring; Complete Time: 22:30 [facility] 08/02 22:04 Order name: EKG - Nurse/Tech; Complete Time: 22:30 [facility] 08/02 22:04 Order name: IV Saline Lock; Complete Time: 22:30 [facility] 08/02 22:04 Order name: Labs collected and sent; Complete Time: 22:30 [facility] 08/02 22:04 Order name: O2 Per Protocol; Complete Time: 22:30 [facility] 08/02 22:04 Order name: O2 Sat Monitoring; Complete Time: 22:30 [facility] 08/02 23:34 Order name: CONS Physician Consult [facility] 08/02 23:34 Order name: CONS Physician Consult [facility] 08/02 23:34 Order name: Echo with Doppler [facility] 08/02 23:34 Order name: Renal EDMS Administered Medications: 08/02 22:10 Drug: Xopenex (3) 1.25 mg Route: Inhalation; bb 23:33 Follow up: Response: No adverse reaction kb1 22:15 Drug: Cardizem 10 mg Route: IVP; Site: right hand; bb 23:41 Follow up: Response: No adverse reaction kb1 22:17 Drug: Cardizem 5 mg/hr Route: IV; Rate: calculated rate; Site: right hand; bb 22:32 Follow up: Rate change 10 mg/hr kb1 22:50 Follow up: Rate change 15 mg/hr kb1 23:48 Follow up: Rate change 10 mg/hr kb1 08/03 01:22 Follow up: IV Status: Infusion continued upon admission kb1 Disposition: 08/02/17 23:10 Hospitalization ordered by Jasbir Nevarez for Inpatient Admission. Preliminary diagnosis is Atrial fibrillation and flutter. - Bed requested for Intensive Care Unit. - Status is Inpatient Admission. kb1 - Condition is Fair. - Problem is an acute exacerbation. - Symptoms are unchanged. UTI on Admission? No Signatures: Dispatcher [employer] EDMS Steven Sebastian rg2 Fidel Lieberman MD MD kdr Jaclyn Jiménez RN RN bb Stacie Al RN RN kb1
[2017-08-02 23:15] LABS: Blood Morphology Comment NOT SEEN (NOT SEEN); Platelet Estimate ADEQ; Urine White Blood Cell Casts OK
[2017-08-02] MEDS ORDERED: MIDODRINE HCL 5 MG TABLET PO PRN (23:30)
[2017-08-02] MEDS ORDERED: ACETAMINOPHEN 500 MG TAB PO PRN (23:31)
[2017-08-02] MEDS ORDERED: MAGNESIUM HYDROXIDE 8% 30 ML PO PRN (23:31)
[2017-08-02] MEDS ORDERED: ONDANSETRON 4 MG/2 ML VIAL IV PRN (23:31)
--- NOTE | 2017-08-03 08:05 | RAD REPORT ---
EXAM DESCRIPTION: RAD - Chest Single View - 08/02/2017 10:15 pm CLINICAL HISTORY: Shortness of breath COMPARISON: 07/26/2017 FINDINGS: Portable technique limits examination quality. Moderate bilateral pulmonary opacities are noted probably representing pulmonary edema. The heart is moderately enlarged in size. Aortic atherosclerosis is noted. Small pleural effusions. No displaced f ractures. IMPRESSION: Moderate CHF.
[2017-08-03] MEDS: GABAPENTIN 300 MG CAP PO SCH ×3 (08:37→20:06)
[2017-08-03] MEDS: MIDODRINE HCL 5 MG TABLET PO SCH (08:37)
[2017-08-03] MEDS ORDERED: GABAPENTIN 100 MG CAP PO SCH (09:00)
[2017-08-03] MEDS ORDERED: METOPROLOL TAR 50 MG TAB PO SCH (09:00)
[2017-08-03] MEDS ORDERED: FUROSEMIDE 40 MG/4 ML VIAL IV SCH (09:00)
--- NOTE | 2017-08-03 10:23 | EKG ---
Test Date: 2017-08-02 Test Time: 21:49:49 Access Nurse: MARIA D MEASUREMENT RESULTS: Intervals: Rate: 134 LA: QRSD: 138 QT: 280 QTc: 418 [place]: P: LA: QRS: 260 T: 89 INTERPRETIVE STATEMENTS: Atrial fibrillation with rapid ventricular response Left bundle branch block Abnormal ECG Compared to ECG 07/23/2017 09:44:24 no significant change from previous ECG Electronically Signed On 08-03-17 10:22:55 CDT by Bird Bird
[2017-08-03] MEDS: SEVELAMER CARBONATE 800 MG TABLET PO SCH ×2 (12:00→17:00)
--- NOTE | 2017-08-03 12:01 | CON ---
History Of Present Illness: Ms. Vazquez is 67. She is a chronic hemodialysis patient. She gets very hypotensive with dialysis and we have her on midodrine every day she gets dialysis and that seems to have helped. She is on chronic Coumadin therapy because of chronic atrial fib. [facility] of a very rapid AFib, normally without any medicines to control her heart rate. She gabriella ntains a good blood pressure. Heart rates usually in the 70s to 80s, but sometimes goes into spells, where her heart rate is up to 200 beats per minute and that seemed to be the case last night. It oc curred in her usp. The heliarc welder documented it. In the emergency room, she was given Cardizem s omething that would not be considered the ideal medicine for her because of its tendency to cause hyp otension and affect people with depressed left ventricular ejection fraction. Hers is mildly depress ed. I would argue against using Cardizem or verapamil or a beta-kristine in her because she is a dial ysis patient. Getting digoxin would be problematic. She has underlying lung disease too. I am not too eager to recommend giving amiodarone to control her heart rate. 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 This is a way to contr ol her heart rate. Tight now, she has pulmonary edema probably from the high heart rate. She will g et dialysis today and we will see if we can improve her lung function, perhaps get her off the Coumad in, and get her ready to get a pacemaker and an ablation. RISA/VENTURA Voice ID: [id number] Report ID: [id number]
[2017-08-03] MEDS: TRAMADOL HCL 50 MG TAB PO PRN ×2 (12:11→20:06)
[2017-08-03] MEDS ORDERED: LIDOCAINE 1% MPF 5 ML VIAL IJ SCH (14:00)
[2017-08-03] MEDS ORDERED: NA CHLORIDE 0.9% 1,000 ML IV PRN (14:36)
[2017-08-03] MEDS ORDERED: MANNITOL 25% 12.5 GM/50 ML VIAL IV PRN (14:36)
[2017-08-03] MEDS ORDERED: ALBUMIN HUMAN 25% 50 ML IV SCH (15:00)
--- NOTE | 2017-08-03 15:46 | CON ---
Date of Consultation: 08/03/2017 Consulting Physician: Dr. Foster. Reason Of Consultation: Elevated BUN, creatinine over volume fluid management, hyponatremia, end-sta ge renal disease. History Of Present Illness: This is pleasant unfortunate 67-year-old female with significant past me dical history of hypertension, end-stage renal disease, on hemodialysis, COPD secondary to smoking, c oronary artery disease complicated with congestive heart failure, diabetes complicated with neuropath y and nephropathy, end-stage renal disease, on hemodialysis Tuesday, Tuesday, Tuesday through left ar m AV fistula at [facility], the patient was in her regular state of health, recen tly admitted to the hospital with cellulitis of the lower extremity discharge, the patient came to [facility] complaining from chest tightness, found to have AFib with over volume for that reason, we have been consulted. The patient denied any recent change in her medication. The patient was seen b y Cardiology. Cardiology recommended ablation and ICD placement. Past Medical History: 1.Diabetes complicated with neuropathy and nephropathy. 2.Hypertension, currently low blood pressure depending on midodrine. 3.Congestive heart failure, diastolic dysfunction. 4.AFib. 5.Cellulitis. 6.Diabetes complicated with neuropathy and nephropathy. 7.End-stage renal disease, on hemodialysis, Tuesday, Tuesday, Tuesday at [facility]. Past Surgical History: 1.AV fistula creation. 2.Left hip surgery. 3.Bilateral breast reduction. 4.Tracheostomy. Social History: Denies smoking, ex-smoker before. Denied alcohol. Denied drug abuse. Allergies: TO ASPIRIN. Home Medications: 1.Coumadin. 2.Tramadol. 3.Renvela. 4.Midodrine p.r.n. 5.Gabapentin. Current Medications In The Hospital: Midodrine, gabapentin, Renvela, temazepam and tramadol. Review of Systems: Head and Neck: No red eye. No ear pain. GI: No nausea, no vomiting. : No polyuria. No dysuria. No hematuria. 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 Respiratory: Has shortness of breath. Cardiovascular: Chest tightness. Endocrine: No polydipsia. Skin: No rash. Physical Examination: Vital Signs: When I saw the patient, blood pressure 99/59, pulse of 85. Chest: Wheezing bilateral. Heart: S1, S2 irregular. Abdomen: Soft, nontender. EXTREMITIES: No edema. Venous stasis bilateral. Laboratory Data: WBC 10.2, H and H 11.1/36.2, platelets of 313. Sodium of 130, potassium 4.6, bicar b 26, BUN 34, creatinine 5.6, calcium 9.4, magnesium 2.1. BNP 2338. Chest x-ray, cardiomegaly with congestion. Assessment And Plan: 1.End-stage renal disease, over volume with respiratory distress. I am going to go ahead and arrang e for dialysis today and we will challenge the patient. I am going to dialyze the patient with low b lood flow and with low temperature and using sodium module to avoid any low blood pressure and we elisabeth l follow up. 2.Anemia, no need for NICOLE, no need for transfusion for the time being. We will hold on Epogen. 3.Secondary hyperparathyroid, agree with resuming the Renvela. 4.Atrial fibrillation with decompensated congestive heart failure. We will do dialysis today and we will arrange for sequential tomorrow to establish better volume control and we will follow up the malina mcwilliams. 5.Hypertension, currently hypotensive, depending on midodrine we will use midodrine p.r.n. before di alysis. 6.Atrial fibrillation, follow up with Cardiology, plan for ICD and ablation. 7.Congestive heart failure. We will optimize blood pressure. We will optimize fluid status with ul trafiltration. 8.Hyponatremia, dilutional secondary to renal failure and congestive heart failure. We will establi sh better volume control. 9.Diabetes by primary. Case discussed with Dr. Foster. Discussed with the primary nurse, discussed with the patient, verbalized understanding. BRENDA Voice ID: [id number] Report ID: [id number]
[2017-08-03] MEDS ORDERED: WARFARIN SODIUM 2.5 MG TAB PO SCH (17:00)
[2017-08-03] MEDS: BENZONATATE 100 MG CAP PO PRN (17:20)
--- NOTE | 2017-08-03 17:46 | PN ---
Date of Progress Note: 08/03/2017 Subjective: The patient is seen and examined, chart reviewed, and case discussed with RN and Dr. Abner agosto. The patient going for hemodialysis today. The patient initially refused transfer to [facility]; however, after further discussion with consultants, the patient now okay with being transferred. Do es report some excoriations underneath her abdominal pannus. Review of Systems: Negative except as above. Medications: Reviewed. Physical Examination: Vital Signs: Temperature 97.7, heart rate 88, blood pressure 101/63, respirations 22, O2 saturation 91% on 2 L via nasal cannula. General: Awake, alert, oriented x3, in some mild distress. Elderly female, ill appearing, obese, BM I 33. CV: S1, S2. Peripheral pulses present. No murmurs. Respiratory: Moving air well bilaterally. No wheezing. No stridor. No use of accessory muscles. Gastrointestinal: Abdomen is soft, nontender, nondistended. Positive bowel sounds. Large abdominal pannus. Extremities: No clubbing, cyanosis. The patient does have some peripheral edema. No calf tendernes s. Neurologic: Nonfocal. Skin: The patient does have some excoriations and candidal skin infection underneath the abdominal p annus. Laboratory Data: Sodium 130, potassium 4.6, chloride 93, CO2 26, BUN 34, creatinine 5.64, glucose 18 0, calcium 9.4, magnesium 2.1. This is from 08/02/2017. Blood cultures are pending. Assessment And Plan: A 67-year-old female with; 1.Atrial fibrillation with rapid ventricular response. The patient was initially given Cardizem in the ER, improved with Lopressor. The patient is hypotensive at this time. We will continue anticoag ulation with warfarin. Appreciate Dr. Bird' input. 2.Congestive heart failure, chronic systolic dysfunction. EF approximately 40%. 3.Obesity, BMI 33.9. 4.Chronic obstructive pulmonary disease. We will continue DuoNebs. 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 6.Diabetic neuropathy. 7.History of cerebrovascular accident. 8.Mixed hyperlipidemia. 9.Anxiety and depression. 10.Peripheral vascular disease. Plan: 1.The patient recommended to be transferred to [place] for AV node ablation and pacemaker placement. 2.End-stage renal disease, on hemodialysis. We will continue hemodialysis. Appreciate Nephrology i nput. Plan to transfer once accepted. JULIANNE Voice ID: [id number] Report ID: [id number]
[2017-08-03] MEDS: NYSTATIN PWDR 100000 UNIT/GM TOP SCH (20:12)
[2017-08-03] MEDS ORDERED: TEMAZEPAM 15 MG CAP PO SCH (21:00)
[2017-08-03] MEDS ORDERED: LORazepam 2 MG/ML VIAL IV ONE (23:01)
[2017-08-04 05:30] LABS: Protime INR 1.93
[2017-08-04 05:33] LABS: Absolute Lymphocytes (CBC) 0.5 K/uL (0.7-4.9); Absolute Neutrophil 8.1 K/uL (1.8-8.0); Basophils % 0.6 % (0-1.3); Eosinophils % 0.1 % (0-4.4); Hematocrit 37.9 % (36.0-45.0); Lymphocytes % 5.7 % (15.3-44.8); MCH 27.6 pg (27.0-35.0); MCV 90.5 fL (80-100); MPV 8.3 fL (7.6-11.3); Monocytes % 10.5 % (3.3-12.3); RBC Red Blood Cell Count 4.18 M/uL (3.86-4.86)
[2017-08-04 05:35] VITALS: BMI 33.5
[2017-08-04 05:43] LABS: Albumin 2.8 g/dL (3.2-5.5); Bilirubin Total 0.8 mg/dL (0.3-1.2); Phosphorus 6.4 mg/dL (2.5-4.3); Potassium 4.4 mEq/L (3.6-5.0); Protein, Total 8.5 g/dL (6.0-8.3)
[2017-08-04] MEDS: SEVELAMER CARBONATE 800 MG TABLET PO SCH ×3 (08:00→17:00)
[2017-08-04] MEDS ORDERED: VANCOMYCIN/NS 1 gm 1 GM/250 ML BAG IVPB ONE (08:06)
[2017-08-04] MEDS: NYSTATIN PWDR 100000 UNIT/GM TOP SCH ×2 (08:24→22:37)
[2017-08-04] MEDS: MIDODRINE HCL 5 MG TABLET PO SCH (08:24)
[2017-08-04] MEDS: BENZONATATE 100 MG CAP PO PRN (08:24)
[2017-08-04] MEDS: GABAPENTIN 300 MG CAP PO SCH ×4 (08:26→23:44)
[2017-08-04] MEDS ORDERED: GLUCAGON 1 MG/VIAL IM PRN (08:34)
[2017-08-04] MEDS ORDERED: D50W 25 GM/50 ML SYRINGE IV PRN (08:34)
--- NOTE | 2017-08-04 09:33 | RAD REPORT ---
EXAM DESCRIPTION: RAD - Chest Single View - 08/04/2017 8:59 am CLINICAL HISTORY: Shortness of breath. COMPARISON: 08/02/2017, 07/26/2017 FINDINGS: Portable technique limits examination quality. Bilateral pulmonary opacities have slightly worsened since the comparative study, particularly in the left mid lung and right lung base. The heart is moderately enlarged in size. Aortic atherosclerosis. No displaced fractures. IMPRESSION: Mild worsening of lung aeration since the comparative study as described above.
[2017-08-04] MEDS: INSULIN -REGULAR HUMAN 50 UNIT/0.5 ML ML SQ SCH ×3 (11:27→21:00)
--- NOTE | 2017-08-04 12:10 | PN ---
The patient is awaiting transfer to [facility] for an AV siena ablation and a pacemaker becau se of recurrent atrial fibrillation with rapid ventricular response that is symptomatic, and the portia ent is not a candidate for other therapy at this point. Coumadin is being held. GUZMAN/VENTURA Voice ID: [id number] Report ID: [id number]
[2017-08-04] MEDS ORDERED: CEFEPIME 1 GM/VIAL IV SCH (12:47)
[2017-08-04] MEDS ORDERED: CEFEPIME IV SCH (13:00)
[2017-08-04] MEDS ORDERED: NA CHLORIDE 0.9% IV SCH (13:00)
[2017-08-04] MEDS ORDERED: HALOPERIDOL LACT 5 MG/ML INJ IV PRN ×2 (13:07→15:43)
[2017-08-04] MEDS ORDERED: DIPHENHYDRAMINE 50 MG/ML VIAL IV ONE (13:08)
[2017-08-04] MEDS ORDERED: IPRATROPIUM BROM 0.5MG/2.5ML NEB SCH (14:00)
[2017-08-04] MEDS ORDERED: ALBUTEROL 2.5 MG/3 ML NEB SOL NEB SCH (14:00)
[2017-08-04] MEDS ORDERED: DIGOXIN 0.25 MG/ML AMP IV SCH (15:00)
[2017-08-04] MEDS ORDERED: ROCURONIUM 50 MG/5 ML VIAL IV STA (15:02)
[2017-08-04] MEDS ORDERED: RSI MEDICATION KIT IV ONE (15:06)
--- NOTE | 2017-08-04 15:36 | RAD REPORT ---
EXAM DESCRIPTION: RAD - Chest Single View - 08/04/2017 3:27 pm CLINICAL HISTORY: Intubation COMPARISON: August 04 TECHNIQUE: AP portable chest image was obtained 1518 hours . FINDINGS: Endotracheal tube has been placed. Tip is mid aortic arch level 2 cm above the rosalia. Car diac silhouette is enlarged but not substantially different from prior imaging. Patient positioning a nd rotation limit left base assessment. Extensive interstitial lung disease is still present. There is an increased haziness to the right upp er lobe that could be developing edema, infiltrate or even aspiration. No pneumothorax. IMPRESSION: ET tube in good position mid aortic arch level 2 cm above the rosalia. Increased opacification in the right upper lobe superimposed on all ready prominent bilateral interst itial edema or infiltrate pattern.
--- NOTE | 2017-08-04 15:40 | P.PN ---
Date of Service: 08/04/17 Patient became more agitated earlier this afternoon was given Haldol and Benadryl x1. Patient did well afterwards heart rate decreased however couple hr later patient to of became more agitated her heart rate went up to the 150s. Patient became less responsive. patient was not breathing well was cold and clammy O2 saturations dropping. ABG showed acidosis and hypercapnia Ifrah rojas was called. Patient was subsequently intubated digoxin was given. She was on stable therefore was shocked twice 200 joules. Patient's heart rate improved to the 110's. family was updated. [facility] will be called to update on the status of the patient pending transfer. Patient has a overall poor prognosis. Patient has previously been intubated and had to be trached will consult pulmonology
[2017-08-04] MEDS ORDERED: PROPOFOL 1,000 MG/100 ML VIAL IV PRN (15:43)
[2017-08-04] MEDS ORDERED: LORazepam 2 MG/ML VIAL IV PRN (15:43)
[2017-08-04] MEDS: FENTANYL CITR 100 MCG/2 ML IV PRN ×2 (16:22→23:26)
--- NOTE | 2017-08-04 16:27 | EKG ---
Test Date: 2017-08-04 Test Time: 14:19:44 Mop Worker: TC/A MEASUREMENT RESULTS: Intervals: Rate: 120 NE: 216 QRSD: 144 QT: 318 QTc: 449 Forbes: P: NE: 216 QRS: 255 T: 88 INTERPRETIVE STATEMENTS: Suspect arm lead reversal, interpretation assumes no reversal afib rvr lbbb Nonspecific intraventricular block Anterolateral infarct, age undetermined Abnormal ECG Compared to ECG 08/02/2017 21:49:49 [facility] [place] Electronically Signed On 08-04-17 16:27:14 CDT by Benigno Willis
[2017-08-04] MEDS ORDERED: ETOMIDATE 20 MG/10 ML VIAL IV ONE (16:40)
[2017-08-04 16:43] LABS: Arterial Blood Carboxyhemoglob 1.5 % (0-1.5); Blood Gas Oxyhemoglobin 94.6 % (94-97)
[2017-08-04 16:52] VITALS: O2SAT 100
--- NOTE | 2017-08-04 17:01 | PN ---
Date of Progress Note: 08/04/2017 Subjective: The patient is seen and examined, chart reviewed, and case discussed with RN and Dr. Tatum. The patient is slightly more confused today, was agitated last night. Attempts to get out of bed. Did receive some Ativan overnight. Review of Systems: Limited due to the patient's medical condition. Medications: Reviewed. Physical Examination: Vital Signs: Temperature 97.5, heart rate 121, blood pressure 97/52, respirations 14, O2 saturation 94% on 2 L via nasal cannula. General: Awake, alert, oriented x1, in some mild distress. Ill-appearing elderly female. BMI 33, o bese. CV: S1, S2. Irregularly irregular. Peripheral pulses weak bilaterally. Respiratory: Diminished breath sounds throughout. Some wheezing is heard. Extremities: No clubbing, cyanosis. The patient has peripheral edema. Gastrointestinal: Abdomen is soft, nondistended, nontender. Positive bowel sounds. Neurologic: Nonfocal. Laboratory Data: Sodium 136, potassium 4.4, chloride 95, CO2 30, BUN 26, creatinine 4.88, glucose 17 3, calcium 8.8, phosphorus 6.4. WBC 9.7, H and H 11.5 and 37.9, platelets 265. INR 1.93. Blood cul ture show no growth to date. Chest x-ray shows mild worsening of lung aeration since comparative aide dy as described above, bilateral pulmonary opacities worsened, particularly left mid lung and right l matt base. Assessment And Plan: A 67-year-old female with: 1.Atrial fibrillation with rapid ventricular response. The patient now with controlled ventricular rate. Lopressor as needed. Appreciate Cardiology input. The patient awaiting transfer to [facility] for AV siena ablation and pacemaker. 2.Congestive heart failure, chronic systolic dysfunction, EF approximately 40%. Continue with guide lines, gentle diuresis. 3.Obesity, BMI 33.9. 4.Chronic obstructive pulmonary disease. Continue DuoNebs. 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 Continue s liding scale insulin. 6.Diabetic neuropathy. 7.History of cerebrovascular accident. 8.Mixed hyperlipidemia. Continue home medications. 9.Anxiety and depression. 10.Peripheral vascular disease. 11.Acute metabolic encephalopathy, may be related to pneumonia versus uremic encephalopathy. 12.Pneumonia, right lower lobe and left middle lobe. We will start on IV antibiotics. Gram-stain d oes show gram-positive cocci. Plan: Transfer to [facility] once bed available. /VENTURA Voice ID: [id number] Report ID: [id number]
[2017-08-04] MEDS: MIDAZOLAM HCL 2 MG/2 ML INJ IV PRN ×2 (18:24→23:44)
[2017-08-04] MEDS: FAMOTIDINE 20 MG/2 ML VIAL IV SCH ×2 (21:00→23:44)
[2017-08-05 00:24] VITALS: BP 98/54; TEMP 97
--- NOTE | 2017-08-05 01:30 | PN ---
Date of Progress Note: 08/04/2017 Subjective: The patient had respiratory distress with AFib with RVR, end up intubated, found to have hypercapnic respiratory failure. Objective: Vital Signs: When I saw the patient, blood pressure 126/54, pulse of 90, afebrile. Chest: Crackles with wheezing bilateral. Heart: S1, S2. Regular. Abdomen: Soft, nontender. Extremities: No edema. Laboratory Data: H and H 11.5/37.9. INR 1.9. ABG; pH 7.16, CO2 78, O2 151, saturation of 94. Sodi um 136, potassium 4.4, bicarb 30, BUN 26, creatinine 4.8, calcium 8.8, phosphorus 6.4. BNP 2300. Medications: Current medications the patient on include, 1.Cefepime. 2.Vancomycin. 3.Midodrine. 4.Rocephin. 5.Gabapentin. 6.Haloperidol. 7.Sedation. 8.Renvela. Assessment And Plan: 1.End-stage renal disease, over volume. We will do sequential dialysis today and we will monitor th e patient. 2.Acidosis, secondary to hypercapnic respiratory failure. The patient intubated. We will follow up . 3.Secondary hyperparathyroidism. No need for binder. 4.Anemia. No need for NICOLE. 5.Atrial fibrillation with rapid ventricular response. We will follow up with Cardiology. 6.Congestive heart failure. We will try to establish better volume control with dialysis today. We will dialyze on low blood flow and we will challenge the patient. BETSY/VENTURA Voice ID: [id number] Report ID: [id number]
--- NOTE | 2017-08-06 02:16 | DS ---
Date of Discharge: 08/05/2017 Consultants: Benigno Willis MD and Bird Bird MD with Cardiology. Chuy Hartman MD with Nephro logy. Admitting Diagnoses: 1.Atrial fibrillation with rapid ventricular response. 2.Congestive heart failure, chronic systolic dysfunction, ejection fraction 40%. 3.Obesity, BMI 33.9. 4.Chronic obstructive pulmonary disease. 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 6.Diabetic neuropathy. 7.History of cerebrovascular accident. 8.Mixed hyperlipidemia. 9.Anxiety and depression. 10.Peripheral vascular disease. 11.Acute metabolic encephalopathy. 12.Pneumonia, right lower lobe and left middle lobe. Discharge Diagnoses: 1.Atrial fibrillation with rapid ventricular response, status post cardioversion. 2.Congestive heart failure, chronic systolic dysfunction, ejection fraction 40%. 3.Obesity, BMI 33.9. 4.Chronic obstructive pulmonary disease. 5.Diabetes mellitus type 2 with neuropathy with long-term use of insulin. 6.History of cerebrovascular accident. 7.Mixed hyperlipidemia. 8.Anxiety and depression. 9.Peripheral vascular disease. 10.Acute metabolic encephalopathy. 11.Pneumonia, right lower lobe and left middle lobe. Hospital Course: The patient is a 67-year-old female with with significant past medical history of A Fib, CHF, obesity, COPD, diabetes, CVA, hyperlipidemia, peripheral vascular disease, who comes in wit h atrial fibrillation with RVR. The patient is very sensitive to beta blockers and calcium channel b lockers. She was initially given Cardizem in the ER and then Lopressor. The patient was admitted to the ICU in serious condition. The patient was also found to have pneumonia, and she was started on broad-spectrum IV antibiotics. Her blood cultures did show gram-positive cocci initially, however, t urned out to be coagulase-negative Staph, which is likely contaminant. The patient was seen by Cardi ology and was in AFib with RVR consistently. The patient was also given digoxin, which really did no t improve her heart rate. The patient had also become agitated, more confused, which was thought to be secondary to the pneumonia, and the patient decompensated, having acute respiratory failure. The patient had Code Blue, found to be very acidotic with pH of 7.16 with hypercapnia with a pCO2 of 78.7 . The patient was subsequently intubated with a difficult intubation by the ER physician. The patie nt was unstable. Heart rate in the 150s, hypoxic, and not perfusing well. The patient was shocked t wice with 200 joules and her heart rate improved into the 110s. The patient's oxygenation improved a s well as her perfusion. The patient initially had been referred to [facility] for [facility] of care after initial Cardiology evaluation and was accepted, however was pending bed placement. The patient's condition deteriorated. She was now on ventilator. The patient has previous history o f being intubated and requiring tracheostomy and required mechanical ventilation for 6 months. The p atient was then transferred to [facility] [place] [place] once bed was available on 08/05/2017. The patient remains i n critical condition with poor prognosis. Family was updated. The patient has multiple comorbiditie s including atrial fibrillation with difficult to control. The patient will need ablation and pacema ker placement at [facility] [place]. Total time spent transferring the patient was 32 minutes. /VENTURA Voice ID: [id number] Report ID: [id number]
--- NOTE | 2017-08-09 07:17 | P.HP ---
Certification for Inpatient Patient admitted to: Inpatient With expected LOS: >2 Midnights Patient will require the following post-hospital care: None Practitioner: I am a practitioner with admitting privileges, knowledge of patient current condition, hospital course, and medical plan of care. Services: Services provided to patient in accordance with Admission requirements found in Title 42 Section 412.3 of the Code of Federal Regulations Patient History Date of Service: 08/02/17 Reason for admission: AFib with RVR History of Present Illness: Patient is a 67-year-old female was admitted to the hospital with atrial fibrillation with rapid ventricular response. Patient has been in the hospital on numerous occasions with similar events. In the ER she was given IV Cardizem which we had stopped. Will try to keep her heart rate regulated with IV Lopressor as needed. Patient is also a dialysis patient. We will consult Cardiology and Nephrology regarding admission. Will await Cardiology input before starting anti arrhythmic or chronic anticoagulation. Allergies aspirin Allergy (Severe, Verified 03/25/16 16:13) Hives/Rash Home Medications: Temazepam [Restoril*] 15 mg PO BEDTIME 02/21/17 Tramadol HCl [Ultram] 50 mg PO Q6H PRN 02/21/17 Gabapentin [Neurontin*] 300 mg PO TID 07/23/17 Midodrine HCl [Proamatine*] 10 mg PO EVERY HD PRN #30 tab 07/27/17 Sevelamer Carbonate [Renvela*] 2,400 mg PO TIDWM #60 tablet 07/27/17 Warfarin Sodium [Coumadin*] 2 mg PO DAILY 5 PM 08/03/17 Albuterol Neb [Proventil 0.083% Neb Soln] 2.5 mg NEB [id number] amp 08/04/17 Famotidine [Pepcid*] 20 mg IV BID vial 08/04/17 Fentanyl Cit [Sublimaze*] 25 mcg IV Q4HP PRN vial 08/04/17 Haloperidol Lac [Haldol*] 2 mg IV Q4HP PRN vial 08/04/17 Heparin [Heparin 1,000 units/mL *] 4,000 unit IV EVERY HD PRN vial 08/04/17 Ipratropium Neb [Atrovent*] 0.5 mg NEB [id number] amp 08/04/17 Lorazepam [Ativan*] 2 mg IV Q2HP PRN vial 08/04/17 Midazolam HCl [Versed*] 2 mg IV Q2HP PRN vial 08/04/17 Midodrine HCl [Proamatine*] 5 mg PO DAILY tab 08/04/17 Midodrine HCl [Proamatine*] 10 mg PO EVERY HD PRN tab 08/04/17 Ondansetron [Zofran*] 4 mg IV Q6HP PRN vial 08/04/17 - Past Medical/Surgical History Has patient received pneumonia vaccine in the past: Yes Diabetic: Yes -: Diabetes mellitus type 2 -: Atrial fibrillation -: Congestive heart failure -: COPD -: Neuropathy -: History of CVA -: Hyperlipidemia -: Anxiety and depression -: Chronic anti coagulation -: Peripheral vascular disease -: Chronic Kidney failure -: Left hip repair -: Bilateral breast reduction -: Tracheotomy with reversal Psychosocial/ Personal History: She is , has 2 children, she does not work. - Family History Father Family History: Reviewed- Non-Contributory - Social History Smoking Status: Former smoker Alcohol use: No CD- Drugs: No Caffeine use: No Review of Systems 10-point ROS is otherwise unremarkable Physical Examination - Vital Signs Temperature: 97 F Blood Pressure: 98/54 Pulse: 110 Respirations: 25 Pulse Ox (%): 100 - Physical Exam General: Alert, In no apparent distress, Oriented x2 HEENT: Atraumatic, PERRLA, Mucous membr. moist/pink, EOMI, Sclerae nonicteric Neck: Supple, 2+ carotid pulse no bruit, No LAD, Without JVD or thyroid abnormality Respiratory: Crackles/rales Cardiovascular: Irregular heart rate/rhythm, Systolic murmur Gastrointestinal: Normal bowel sounds, Soft and benign, Non-distended, No tenderness Musculoskeletal: No tenderness Integumentary: No rashes, Tenderness/swelling Neurological: Normal tone, Sensation intact, Cranial nerves 3-12 intact, Abnormal strength Lymphatics: No axilla or inguinal lymphadenopathy - Studies Microbiology Data (last 24 hrs): 08/02/17 22:20 Blood - Other Aerobic Blood Culture - Final 08/02/17 22:20 Blood - Other Gram Stain - Final 08/02/17 22:20 Blood - Other Anaerobic Blood Culture - Final No growth in 5 days. Assessment & Plan - Problems (Diagnosis) (1) Atrial fibrillation Onset Date: 03/26/16 Status: Chronic Qualifiers: (2) CHF (congestive heart failure) Onset Date: 03/26/16 Status: Chronic (3) COPD (chronic obstructive pulmonary disease) Onset Date: 03/26/16 Status: Chronic Qualifiers: (4) Diabetes mellitus Onset Date: 03/26/16 Status: Chronic Qualifiers: (5) End stage renal disease Onset Date: 03/26/16 Status: Chronic (6) Neuropathy Onset Date: 03/26/16 Status: Chronic (7) Obesity (BMI 30-39.9) Onset Date: 07/25/17 Status: Chronic (8) Ulcer of left heel Status: Chronic - Plan 1. Will continue medications for rate control and anticoagulation pending Cardiology input 2. Strict blood pressure control 3. Echocardiogram 4. Cardiology consultation & Nephrology consultation for dialysis 5. Repeat chest x-ray 6. admit patient to intensive care unit 7. GI and DVT prophylaxis Discharge Plan: Home Plan to discharge in: Greater than 2 days - Advance Directives Does patient have a Living Will: No Does patient have a Durable POA for Healthcare: No - Code Status/Comfort Care Code Status Assessed: Yes Code Status: Full Code Critical Care: No Time Spent Managing PTS Care (In Minutes): 50
== END 2017-08-05 01:05 | disposition short-term general hospital (02) | DRG 208 ==
LOC: ER 21:46 → ERHOLD 23:13 → 3RD-ICU 08-03 00:02
PROVIDERS: ADMIT Hospitalist; ATTEND Hospitalist
PROC: 5A1D70Z Performance of Urinary Filtration, Intermittent, Less than 6 Hours Per Day (ICD-10-PCS; 2017-08-03)
PROC: 5A1D70Z Performance of Urinary Filtration, Intermittent, Less than 6 Hours Per Day (ICD-10-PCS; 2017-08-03)
PROC: 5A2204Z Restoration of Cardiac Rhythm, Single (ICD-10-PCS; principal; 2017-08-04)
PROC: 5A1935Z Respiratory Ventilation, Less than 24 Consecutive Hours (ICD-10-PCS; 2017-08-04)
PROC: 0BH17EZ Insertion of Endotracheal Airway into Trachea, Via Natural or Artificial Opening (ICD-10-PCS; 2017-08-04)
DX: J96.02 Acute respiratory failure with hypercapnia (principal); J18.9 Pneumonia, unspecified organism; N18.6 End stage renal disease; J44.0 Chronic obstructive pulmonary disease with (acute) lower respiratory infection; I13.2 Hypertensive heart and chronic kidney disease with heart failure and with stage 5 chronic kidney disease, or end stage renal disease; I50.32 Chronic diastolic (congestive) heart failure; E87.1 Hypo-osmolality and hyponatremia; E87.2 Acidosis; I48.91 Unspecified atrial fibrillation; J96.01 Acute respiratory failure with hypoxia; E78.2 Mixed hyperlipidemia; F41.8 Other specified anxiety disorders; I73.9 Peripheral vascular disease, unspecified; E66.9 Obesity, unspecified; Z68.33 Body mass index [BMI] 33.0-33.9, adult; E11.40 Type 2 diabetes mellitus with diabetic neuropathy, unspecified; E11.22 Type 2 diabetes mellitus with diabetic chronic kidney disease; Z86.73 Personal history of transient ischemic attack (TIA), and cerebral infarction without residual deficits; Z99.2 Dependence on renal dialysis; B37.2 Candidiasis of skin and nail; Z88.6 Allergy status to analgesic agent
CPT/HCPCS: 36415; 71045; 80048; 80053; 80069; 80076; 82550; 82553; 82805; 82962; 83735; 83880; 84484; 85025; 85610; 85730; 87040; 87205; 90935; 93005; 94002; 94640; 96365; 96366; 96375; 99291; J0692; J1160; J1630; J2150; J2250; J3010; J3370